=== PATIENT | male | born 2000 | race Caucasian/White ===

== ENCOUNTER 2025-03-04 03:05 | Emergency (ER) | payer OTHER ==
[~2025-03-04] VITALS: Ht 165.1 cm; Wt 68.0 kg
[2025-03-04 03:10] VITALS: O2SAT 96
[2025-03-04] MEDS ORDERED: LIDOCAINE HCL 2% 20 ML VIAL ONE (03:46)
[2025-03-04] MEDS: LIDOCAINE HCL 2% 20 ML VIAL TP ONE (03:54)
[2025-03-04] MEDS ORDERED: IBUPROFEN 600 MG TABLET ONE (04:57)
[2025-03-04] MEDS ORDERED: IBUP-1955 PO (04:58)
[2025-03-04] MEDS ORDERED: CIPROFLOXACIN HCL 250 MG TABLET ONE (04:58)
[2025-03-04] MEDS ORDERED: CIPR-263 PO (04:58)
[2025-03-04] MEDS: CIPROFLOXACIN HCL 250 MG TABLET PO ONE (05:00)
[2025-03-04] MEDS: IBUPROFEN 600 MG TABLET PO ONE (05:00)
== END 2025-03-04 05:02 | disposition home or self-care (01) ==
LOC: ER 03:09
DX: S00.431A Contusion of right ear, initial encounter (principal); S00.83XA Contusion of other part of head, initial encounter; Z87.19 Personal history of other diseases of the digestive system; W50.0XXA Accidental hit or strike by another person, initial encounter; Y93.71 Activity, boxing; Y92.89 Other specified places as the place of occurrence of the external cause; Y99.8 Other external cause status
CPT/HCPCS: 12011; 69000; 99284; J3490; A4606; A4663